=== PATIENT | female | born 1935 ===

== ENCOUNTER 2018-06-09 13:16 | Emergency (ER) | payer MEDICARE, OTHER ==
[2018-06-09] MEDS ORDERED: NS 0.9% 1000 ML* 2,000 ML IV ONE (13:33)
--- NOTE | 2018-06-09 13:40 | ED ---
Neurological HPI - HPI Summary HPI Summary: This patient is a 82 year old female presenting to [facility] accompanied by her son with a chief complaint of leg-stiffening since last light. Patient states that she had 4 vomiting episodes last night. Afterwards, her legs stiffened up and she had to sit on the toilet to keep from falling over. Patient states that eventually, she could ambulate, but was unsteady. This leg stiffening episode occurred at around 2030. Patient presents to the ED this morning after telling her son about her fall and leg-stiffening last pm. There was no new episode this am. The pain is rated 0/10 in severity. Symptoms aggravated by nothing. Symptoms alleviated by nothing. Patient denies any LOC or head trauma. Patient additionally notes that her head feels foggy today, and just doesnt feel good, but denies a headache. Patient denies headache, chest pain, SOB, abd pain. Patient notes that she has not vomited today. Patient has a PMHx of HTN, GERD, acid reflux, anemia. Patient has a FHx of cardiac disease on her brothers side. Vital signs while in room: HR 97 bpm, BP 165/100. - History of Current Complaint Chief Complaint: EDDizziness Stated Complaint: DIZZINESS,VOMITING,FELL, CUT TOE Time Seen by Provider: 06/09/18 13:25 Hx Obtained From: Patient Onset/Duration: Started hours ago, Resolved Timing: Constant Onset Severity: Moderate Current Severity: None Neurological Deficit Location: RLE, LLE Pain Intensity: 0 Pain Scale Used: 0-10 Numeric Character: Other: - leg-stiffness Syncope Context: Loss of Consciousness: No Frequency: Episodes x___ - 1, Episodes Lasting ____ (in Mins/Days/Weeks/Years) - mins Aggravating: Nothing Alleviating: Nothing Associated Signs and Symptoms: Positive: Negative - headache, chest pain, SOB, abd pain TPA Considered: No - no deficit - Allergy/Home Medications Allergies/Adverse Reactions: Allergies Allergy/AdvReac Type Severity Reaction Status Date / Time No Known Allergies Allergy Verified 06/09/18 13:20 Home Medications: Home Medications Atorvastatin Calcium 20 mg PO DAILY 06/09/18 [History Confirmed 06/09/18] Metoprolol Succinate 25 mg PO DAILY 06/09/18 [History Confirmed 06/09/18] Nexium 40 mg PO DAILY 06/09/18 [History Confirmed 06/09/18] Poly-Iron 150 Forte Capsule 1 dose PO DAILY 06/09/18 [History Confirmed 06/09/18 ] Vitamin C 500 mg PO DAILY 06/09/18 [History Confirmed 06/09/18] Xanax 0.25 mg PO DAILY 06/09/18 [History Confirmed 06/09/18] PMH/Surg Hx/FS Hx/Imm Hx Previously Healthy: No Endocrine/Hematology History: Reports: Hx Anemia Cardiovascular History: Reports: Hx Hypertension GI History: Reports: Hx Gastroesophageal Reflux Disease Musculoskeletal History: Reports: Hx Scoliosis Opthamlomology History: Denies: Hx Legally Blind EENT History: Denies: Hx Deafness - Cancer History Hx Chemotherapy: No Hx Radiation Therapy: No - Surgical History Surgery Procedure, Year, and Place: cataract surgery, double knee replacement Infectious Disease History: No Infectious Disease History: Denies: Traveled Outside the [place] in Last 30 Days - Family History Known Family History: Positive: Cardiac Disease - brother - Social History Occupation: Retired Lives: Alone Alcohol Use: None Hx Substance Use: No Substance Use Type: Reports: None Hx Tobacco Use: No Smoking Status (MU): Never Smoked Tobacco Review of Systems Negative: Fever Negative: Chest Pain Negative: Shortness Of Breath Positive: Vomiting. Negative: Abdominal Pain Positive: no symptoms reported Positive: Other - leg stiffness Skin: Negative Negative: Headache Psychological: Normal All Other Systems Reviewed And Are Negative: Yes Physical Exam - Summary Physical Exam Summary: Appearance: Well-appearing, no pain distress, well-nourished Skin: Warm, color reflects adequate perfusion, dry, Bilateral knee replacement scars Head: Normal Head/Face inspection, atraumatic Eyes: Conjunctiva clear, PERRL, EOMI, no nystagmus ENT: Normal inspection, TM's clear, scar well healed right ear canal, Pharynx clear Neck: Supple, no nodes, no JVD, no bruits Respiratory: Lungs clear, normal breath sounds, no respiratory distress Cardio: RRR, No murmur, pulses normal, brisk capillary refill Abdomen: Soft, nontender, nondistended, no masses Bowel sounds: Present Musculoskeletal: Strength Intact/ROM intact, no calf tenderness, no edema, Superficial laceration at the lateral aspect of right 5th digit of LE, bleeding controlled, no deformity, no tenderness on palpation Psychological: Normal Neuro: A&O x3, CN II-XII intact, motor function 5/5, sensation intact, cerebellar normal Triage Information Reviewed: Yes Vital Signs On Initial Exam: Initial Vitals Temp Pulse Resp BP Pulse Ox 98.2 F 97 14 165/100 99 06/09/18 13:20 06/09/18 13:20 06/09/18 13:20 06/09/18 13:20 06/09/18 13:20 Vital Signs Reviewed: Yes - Leyla Coma Scale Best Eye Response: 4 - Spontaneous Best Motor Response: 6 - Obeys Commands Best Verbal Response: 5 - Oriented Coma Scale Total: 15 Diagnostics - Vital Signs Vital Signs Temp Pulse Resp BP Pulse Ox 06/09/18 13:20 98.2 F 97 14 165/100 99 - Laboratory Result Diagrams: 06/09/18 13:49 06/09/18 13:49 Lab Statement: Any lab studies that have been ordered have been reviewed, and results considered in the medical decision making process. - Radiology CXR Radiology Interpretation Completed By: Radiologist Summary of Radiographic Findings: CXR reveals, per radiologist, IMPRESSION: NO ACTIVE CARDIOPULMONARY DISEASE IS NOTED. ED physician has reviewed this radiology report. - CT CT Brain CT Interpretation Completed By: Radiologist Summary of CT Findings: CT Brain reveals, per radiologist, IMPRESSION: No intracranial mass or hemorrhage is noted. ED physician has reviewed this radiology report. 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 Motor Function - Left Leg: No Drift-Holds 10 Seconds Limb Ataxia-Must be out of Proportion to Weakness Present: Absent Sensory (Use Pinprick to Test Arms/Legs/Trunk/Face): Normal Best Language (Describe Picture, Name Items): No Aphasia Dysarthria (Read Several Words): Normal Extinction and Inattention: No Abnormality Total Score: 0 Re-Evaluation - Re-Evaluation First Eval Re-Evaluation Time: 15:00 Change: Unchanged Comment: Patient denies chest pain, shortness of breath or any new symptoms. Blood pressure 163/75. Patient's son remains with her. Second Eval Re-Evaluation Time: 15:25 Change: Unchanged Comment: Patient is not orthostatic by blood pressure and pulse. Patient's BNP is 293, so second liter of fluids is not infused. Patient reported dizziness when she changes position in the room before the IV was infused. Patient has no further dizziness while in the ED. Third Eval Re-Evaluation Time: 15:45 Change: Unchanged Comment: Pt states her head still feels a little "foggy", like maybe there is a problem with her ears. TM's were clear to my exam. Pt denies [place] or ear pain. Pt denies chest pain, SOB, abd pain, N, V. States she needs to urinate. Pt and son are agreeable with discharge. Course/Dx - Course Assessment/Plan: This patient is a 82 year old female presenting to [facility] accompanied by her son with a chief complaint of leg-stiffening since last light. Patient additionally notes that her head feels foggy and just doesnt feel good, but denies a headache. An EKG, taken 1346, reveals NSR (92 BPM), normal LUBA CT, normal QTc, normal axis, no acute changes, not a STEMI. CXR reveals, per radiologist, IMPRESSION: NO ACTIVE CARDIOPULMONARY DISEASE IS NOTED. ED physician has reviewed this radiology report. CT Brain reveals, per radiologist, IMPRESSION: No intracranial mass or hemorrhage is noted. ED physician has reviewed this radiology report. Bloodwork obtained showing mildly elevated BUN/creat (but in range of previous), and mildly elevated BNP 293, without evidence of pulmonary edema on exam or CXR. Urinalysis obtained and is sent for culture. In the ED course the patient was given NS 0.9% bolus IV which was DC'd once BNP result returned. Pt was not orthostatic. Patient will be discharged with a dx of near syncope. Patient is advised to follow up with Dr. Carmen (PCP) in 2 days. The patient is agreeable with this plan. - Differential Dx Differential Diagnoses Neuro: Positive: Cerebrovascular Accident, Coronary Artery Disease, Dysrhythmia, Hemorrhage, Hypoglycemia, Hypovolemia, Metabolic Abnormality, Pulmonary Embolism, Transient Ischemic Attack, Vasovagal Reaction - Diagnoses Provider Diagnoses: Near syncope, Hypertension, poor control Discharge - Sign-Out/Discharge Documenting (check all that apply): Patient Departure - Discharge Plan Condition: Stable Disposition: HOME Patient Education Materials: Near Syncope (ED) Referrals: Areli Carmen MD [Primary Care Provider] - 2 Days Additional Instructions: We did not find a serious cause for the symptoms that you had last night. There does not appear to be any sign of a heart attack or stroke. You should continue your medications as directed. Contact your primary care doctor to advise them that you had to come to the ER, and arrange for a recheck in the next 2-3 days. Return to the ER if you have any new or worsening symptoms. - Billing Disposition and Condition Condition: STABLE Disposition: Home - Attestation Statements Document Initiated by Dotty: Yes Documenting Scribe: Linden Perez Provider For Whom Dotty is Documenting (Include Credential): MD Anna Gasparibeliseo Attestation: Linden Gooden, scribed for Neeta Zaragoza MD on 06/12/18 at 2050. Scribe Documentation Reviewed: Yes Provider Attestation: The documentation as recorded by the Linden quintanilla accurately reflects the service I personally performed and the decisions made by me, Neeta Zaragoza MD Status of Scribeliseo Document: Viewed
[2018-06-09 14:04] LABS: ABS Basophils 0 10^3/ul (0-0.2); ABS Eosinophils 0 10^3/ul (0-0.6); ABS Lymphocytes 1.1 10^3/ul (1.0-4.8); ABS Monocytes 1.1 10^3/ul (0-0.8); ABS Nucleated RBC 0 10^3/ul; Eosinophil % 0.3 %; Hematocrit 36 % (35-47); Hemoglobin 11.9 g/dl (12.0-16.0); Mean Corpuscular HGB Conc 33 g/dl (31-36); Mean Corpuscular Hemoglobin 31 pg (27-31); Mean Corpuscular Volume 93 fL (80-97); Mean Platelet Volume 8.8 fL (7.4-10.4); Nucleated Red Blood Cells % 0; Platelet Count 222 10^3/ul (150-450); Red Blood Count 3.89 10^6/ul (4.00-5.40); Red Cell Distribution Width 14 % (10.5-15); White Blood Count 8.2 10^3/ul (3.5-10.8)
[2018-06-09 14:13] LABS: Activated Partial Thrombo Time 28.1 seconds (26.0-36.3); INR 0.87 (0.77-1.02)
[2018-06-09 14:15] LABS: ALT 10 U/L (7-52); AST 17 U/L (13-39); Albumin 4.6 g/dL (3.2-5.2); Albumin/Globulin Ratio 1.8 (1-3); Alkaline Phosphatase 55 U/L (34-104); Anion Gap 7 mmol/L (2-11); BUN/Creatinine Ratio 26.7 (8-20); Blood Urea Nitrogen 27 mg/dL (6-24); CO2 Carbon Dioxide 26 mmol/L (22-32); Calcium 10.3 mg/dL (8.6-10.3); Chloride 104 mmol/L (101-111); EGFR Non-African American 52.6 (>60); Globulin 2.6 g/dL (2-4); Glucose 112 mg/dL (70-100); Potassium 3.9 mmol/L (3.5-5.0); Sodium 137 mmol/L (135-145); Total Protein 7.2 g/dL (6.4-8.9)
[2018-06-09 14:57] LABS: Alcohol < 10 mg/dL (<10)
[2018-06-09 15:00] LABS: Barbiturates Urine Screen None Detected (None Detect); Benzodiazepine Urine Screen None Detected (None Detect); Urine Cannabinoids Screen None Detected (None Detect)
[2018-06-09 15:03] LABS: Urine Appearance Clear; Urine Bacteria Absent (Absent); Urine Bilirubin Negative (Negative); Urine Blood Negative (Negative); Urine Color Yellow; Urine Glucose Negative (Negative); Urine Ketones Negative (Negative); Urine Nitrite Negative (Negative); Urine Protein Negative (Negative); Urine Red Blood Cell Absent (Absent); Urine Specific Gravity 1.013 (1.010-1.030); Urine Urobilinogen Negative (Negative); Urine White Blood Cell Trace(0-5/hpf) (Absent)
[2018-06-09 16:05] VITALS: BP 152/81
== END 2018-06-09 16:07 | disposition home or self-care (01) ==
LOC: ED 13:16
DX: R55 Syncope and collapse (principal); I10 Essential (primary) hypertension; D64.9 Anemia, unspecified; K21.9 Gastro-esophageal reflux disease without esophagitis; M41.9 Scoliosis, unspecified
CPT/HCPCS: 36415; 70450; 71045; 80053; 80307; 80320; 81003; 81015; 83605; 83880; 84484; 85025; 85379; 85610; 85730; 87086; 93005; 96360; 99284; G0480

== ENCOUNTER 2021-11-10 05:28 | Observation (INO) ==
[2021-11-10] MEDS ORDERED: Lactated Ringers 1000 ml BAG 1,000 ML IV SCH (06:00)
[2021-11-10] MEDS ORDERED: Buffered Lidocaine 1% SYRIN 1 ml INTRADERM ONE (06:00)
[2021-11-10] MEDS ORDERED: ceFAZolin 2 GM in NS PREMIX 2 GM/100 ML BAG IVPB ONE (06:11)
[2021-11-10] MEDS ORDERED: Bupivacaine 0.25% SDV PF 10 ML VIAL INJ ONE (07:10)
[2021-11-10] MEDS ORDERED: ceFAZolin VIAL VIAL ONE (07:10)
[2021-11-10] MEDS ORDERED: Midazolam 2 mg/2 ml VIAL 1 mg/ml 2 ml VIAL (2 mg) ONE (07:14)
[2021-11-10] MEDS ORDERED: fentaNYL 250 mcg/5 ml 50 MCG/ML 5 ml VIAL (250 MCG) ONE (07:14)
[2021-11-10] MEDS ORDERED: Propofol 10 MG/ML 20 ML BTL ONE ×2 (07:17→11:18)
[2021-11-10] MEDS ORDERED: Phenylephrine IV 10 MG/ML 1 ml VIAL ONE (07:17)
[2021-11-10] MEDS ORDERED: Remifentanil 2 MG VIAL ONE (07:19)
[2021-11-10] MEDS ORDERED: Rocuronium 50 mg VIAL 10 mg/ml 5 ml VIAL (50 mg) ONE (07:55)
[2021-11-10] MEDS ORDERED: HYDROmorphone 0.5 MG/0.5 ML SYRINGE ONE (08:54)
[2021-11-10] MEDS ORDERED: BUPIVACAINE **LIPOSOME/PF 13.3 MG/ML (266MG/ 20ML) VIAL (RESTRICTED) INFIL ONE (09:00)
[2021-11-10] MEDS ORDERED: Dexamethasone IV 4 MG/ML VIAL 1 ml VIAL ONE (10:00)
[2021-11-10] MEDS ORDERED: Ondansetron 4 mg VIAL 2 MG/ML 2 ml VIAL ONE ×2 (10:00→14:06)
[2021-11-10] MEDS ORDERED: Acetaminophen IV 1 GM/100ML 100 ML IV ONE (11:09)
[2021-11-10] MEDS ORDERED: HYDROcodone/ACETAMIN 5/325 mg TAB PO PRN ×2 (12:25)
[2021-11-10] MEDS ORDERED: Ondansetron 4 mg VIAL 2 MG/ML 2 ml VIAL IV PRN (12:25)
[2021-11-10] MEDS ORDERED: Prochlorperazine 5 mg/ml 2 ml VIAL (10 mg) IV PRN (16:02)
[2021-11-11] MEDS ORDERED: DULoxetine DR 30 mg CAP PO SCH (09:00)
[2021-11-11] MEDS ORDERED: Cholecalciferol (VIT D3) 1,000 unit TAB PO SCH (09:00)
[2021-11-11 11:58] VITALS: BP 109/53
== END 2021-11-11 14:22 | disposition home or self-care (01) ==
LOC: SSU 05:28 → OR 05:28
PROVIDERS: ADMIT Neurological Surgery; ATTEND Neurological Surgery